=== PATIENT | female | born 1955 | race Caucasian/White ===

== ENCOUNTER 2023-06-22 09:13 | Emergency (ER) | payer SELFPAY ==
[~2023-06-22] VITALS: Ht 165.1 cm; Wt 59.1 kg
[2023-06-22 09:23] VITALS: TEMP 98.7
[2023-06-22] MEDS ORDERED: VIGAMOX 0.5% 3 M3 ML OP (10:26)
[2023-06-22 10:39] VITALS: BP 122/88; PULSE 62
== END 2023-06-22 10:40 | disposition home or self-care (01) ==
LOC: COL.ER 09:13
DX: S05.31XA Ocular laceration without prolapse or loss of intraocular tissue, right eye, initial encounter (principal); Z28.310 Unvaccinated for COVID-19; W22.8XXA Striking against or struck by other objects, initial encounter